=== PATIENT | male | born 1965 | race Caucasian/White ===

== ENCOUNTER 2024-12-23 08:59 | Emergency (ER) | payer OTHER ==
[~2024-12-23] VITALS: Ht 175.3 cm; Wt 86.2 kg
[~2024-12-23 08:59] MED LIST: ACET-2708 MT; ASPI-1497 MT; ATOR40TA70 MT; CARV12.545 MT; CLOP-31 MT; EMPA10TA MT; FURO-151 MT; HYDR50TA40 MT; ISOS20TA8 MT; LOSA25TA26 MT; LOSA50TA41 PO; METF-414 PO; NITR0.4T49 SL; SPIR25TA6 MT
[2024-12-23 09:02] VITALS: O2SAT 95
[2024-12-23 09:35] LABS: BG DEOXYHEMOGLOBIN 6.2 % (0.0-5.0)
[2024-12-23 09:53] LABS: BASOPHILS % 0.8 % (0.0-2.0); EOSINOPHILS % 2.8 % (0.0-5.0); HEMATOCRIT. 34.1 % (42.0-52.0); HEMOGLOBIN. 10.9 g/dL (14.0-18.0); LYMPHOCYTES % 13.7 % (20.0-50.0); MEAN PLATELET VOLUME 7.9 fl (7.4-10.4); MONOCYTES % 7.3 % (2.0-8.0); NEUTROPHILS % 75.4 % (40.0-76.0); PLATELET 422 x1000/uL (130-400); RED BLOOD CELL COUNT 4.03 mill/uL (4.7-6.1); RED CELL DISTRIBUTION WIDTH 17.4 % (11.6-14.6)
[2024-12-23 10:23] LABS: CREATININE 1.3 mg/dL (0.6-1.3)
[2024-12-23 10:24] LABS: UREA NITROGEN BLOOD 27 mg/dL (9-23)
[2024-12-23 10:25] LABS: ASPARTATE AMINOTRANSFERASE 9 IU/L (<34)
[2024-12-23 10:26] LABS: BILIRUBIN DIRECT 0.5 mg/dL (<=3.0); BILIRUBIN TOTAL 1.5 mg/dL (0.1-1.0); PROTEIN TOTAL 6.7 g/dL (6.0-8.3); TROPONIN I HIGH SENSITIVITY 37 ng/L (3.0-53)
[2024-12-23 11:01] VITALS: BP 138/67; PULSE 72; RESP 26; TEMP 36.9; O2SAT 98
[2024-12-23 11:09] LABS: INFLUENZA TYPE A Presumptive Negative (Pres. Neg.)
[2024-12-23 11:10] LABS: INFLUENZA TYPE B Presumptive Negative (Pres. Neg.); RESPIRATORY SYNCYTIAL VIRUS Not Detected (Not Detectd)
[2024-12-23 11:53] LABS: TROPONIN I HIGH SENSITIVITY 35 ng/L (3.0-53)
== END 2024-12-23 14:18 | disposition home or self-care (01) ==
LOC: ER 08:59 → CANBEDREQ 13:35 → ER 14:18
DX: R06.00 Dyspnea, unspecified (principal); I11.0 Hypertensive heart disease with heart failure; I50.9 Heart failure, unspecified; E11.9 Type 2 diabetes mellitus without complications; Z20.822 Contact with and (suspected) exposure to COVID-19; Z79.82 Long term (current) use of aspirin; Z79.899 Other long term (current) drug therapy
CPT/HCPCS: 36415; 71045; 80048; 80076; 82375; 82803; 83880; 84484; 85025; 87420; 87426; 87804; 93005; 99285

== ENCOUNTER 2025-02-22 16:52 | Emergency (ER) | payer OTHER ==
[~2025-02-22] VITALS: Ht 175.3 cm; Wt 100.0 kg
[~2025-02-22 16:52] MED LIST changes: +ALBU18HF2 IH; +ASPI-1160 PO; +ASPI-1406 PO; -ASPI-1497 MT; +CARV3.1242 PO; +CARV6.2548 PO; +CLOP75TA33 PO; +COR6 PO; +EMPA10TA PO; +FURO40TA5 PO; +GABA-1180 PO; +HYDR25TA78 PO; +HYDR50TA39 PO; -HYDR50TA40 MT; -ISOS20TA8 MT; +ISOS20TA8 PO; +ISOS60TA76 PO; +LIP40 PO; -LOSA25TA26 MT; -LOSA50TA41 PO; +PANT20TA17 PO; +POTA-354 MT; +SACU1TAB7 PO; -SPIR25TA6 MT; +SPIR25TA6 PO
[2025-02-22 17:49] LABS: BASOPHILS % 0.6 % (0.0-2.0); EOSINOPHILS % 1.7 % (0.0-5.0); HEMATOCRIT. 38.3 % (42.0-52.0); HEMOGLOBIN. 12.0 g/dL (14.0-18.0); LYMPHOCYTES % 8.0 % (20.0-50.0); MEAN PLATELET VOLUME 8.1 fl (7.4-10.4); MONOCYTES % 7.3 % (2.0-8.0); NEUTROPHILS % 82.4 % (40.0-76.0); PLATELET 468 x1000/uL (130-400); RED BLOOD CELL COUNT 4.78 mill/uL (4.7-6.1); RED CELL DISTRIBUTION WIDTH 18.9 % (11.6-14.6)
[2025-02-22] MEDS: KETOROLAC 15MG/ML VIAL IM ONE (17:58)
[2025-02-22] MEDS: ACETAMINOPHEN 500MG TABLET PO ONE (17:58)
[2025-02-22 17:59] LABS: INR 1.0
[2025-02-22 18:02] LABS: CREATININE 1.0 mg/dL (0.6-1.3)
[2025-02-22 18:03] LABS: UREA NITROGEN BLOOD 21 mg/dL (9-23)
[2025-02-22 18:05] LABS: ASPARTATE AMINOTRANSFERASE 12 IU/L (<34); BILIRUBIN DIRECT 0.3 mg/dL (<=3.0); BILIRUBIN TOTAL 1.0 mg/dL (0.1-1.0); PROTEIN TOTAL 7.4 g/dL (6.0-8.3); TROPONIN I HIGH SENSITIVITY 26 ng/L (3.0-53)
[2025-02-22] MEDS ORDERED: IPRATROPIUM/ALBUTEROL 0.5-3(2.5)MG/3ML NEB HHN ONE (18:15)
[2025-02-22] MEDS: CEFTRIAXONE 1GM/50ML 50 ML IV ONE (18:20)
[2025-02-22] MEDS: SODIUM CHLORIDE 0.9% (SEPSIS BOLUS) IV ONE (18:21)
[2025-02-22] MEDS: AZITHROMYCIN 500MG/250ML 250 ML IV ONE (19:33)
[2025-02-22] MEDS: IPRATROPIUM/ALBUTEROL 0.5-3(2.5)MG/3ML NEB HHN SCH (19:52)
[2025-02-22 19:59] VITALS: PULSE 91; RESP 20; O2SAT 97
[2025-02-22 21:28] LABS: TROPONIN I HIGH SENSITIVITY 24 ng/L (3.0-53)
[2025-02-22 22:17] VITALS: BP 154/97; PULSE 87; RESP 19; TEMP 36.6; O2SAT 96
== END 2025-02-22 22:43 | disposition short-term general hospital (02) ==
LOC: ER 16:52 → EDBEDREQ 17:29 → EDBEDREQSVC 20:55 → EDBEDREQTM 20:55 → ER 22:43 → CMPBEDREQ 02-23 19:33
DX: J44.1 Chronic obstructive pulmonary disease with (acute) exacerbation (principal); R07.89 Other chest pain; I11.0 Hypertensive heart disease with heart failure; I50.9 Heart failure, unspecified; E11.9 Type 2 diabetes mellitus without complications; Z55.6 Problems related to health literacy; Z75.3 Unavailability and inaccessibility of health-care facilities; Z79.02 Long term (current) use of antithrombotics/antiplatelets; Z79.82 Long term (current) use of aspirin; Z79.84 Long term (current) use of oral hypoglycemic drugs; Z79.899 Other long term (current) drug therapy; Z20.822 Contact with and (suspected) exposure to COVID-19
CPT/HCPCS: 80076; 80048; 83880; 83605; 83690; 85025; 85610; 85730; 87040; 84484; 36415; 84145; 71045; 74176; 94640; 93005; 96367; 96365; 96366; 96372; 99291; 87426; J0456; J0696; J1885; Z7610 ×6; J7030; 94664